=== PATIENT | male | born 1935 | race Caucasian/White ===

== ENCOUNTER 2017-11-15 17:48 | Inpatient (IN) | payer MEDICARE, OTHER ==
[~2017-11-15] VITALS: Ht 154.9 cm; Wt 109.8 kg
--- NOTE | 2017-11-15 17:58 | NUR ---
Dr. Louis here to see pt at the bedside for MSE.
[2017-11-15 18:08] LABS: BASOPHILS % (AUTO) 0.4 % (0.0-2.0); EOSINOPHILS # (AUTO) 0.5 K/uL (0.0-0.7); EOSINOPHILS % (AUTO) 4.3 % (0.0-7.0); HEMATOCRIT 30.5 % (36.7-47.1); HEMOGLOBIN 9.9 g/dL (12.5-16.3); LYMPHOCYTES # (AUTO) 3.1 K/uL (20.0-40.0); LYMPHOCYTES % (AUTO) 24.2 % (20.5-51.5); MEAN CORPUSCULAR HGB CONC 33 g/dL (32.5-36.3); MEAN CORPUSCULAR VOLUME 85.9 fL (73.0-96.2); MONOCYTES # (AUTO) 0.9 K/uL (2.0-10.0); MONOCYTES % (AUTO) 7.5 % (0.0-11.0); NEUTROPHILS # (AUTO) 8.1 K/uL (1.8-8.9); NEUTROPHILS % (AUTO) 63.6 % (38.5-71.5); PLATELET COUNT (AUTO) 270 K/uL (152-348); RED BLOOD CELL COUNT(AUTO) 3.55 MIL/uL (4.06-5.63); WHITE BLOOD COUNT (AUTO) 12.7 K/uL (3.6-10.2)
[2017-11-15 18:21] LABS: ALANINE AMINOTRANSFERASE 14 U/L (16-63); ALKALINE PHOSPHATASE 87 U/L (50-136); ASPARTATE AMINOTRANSFERASE 6 U/L (15-37); BILIRUBIN,DIRECT 0.2 mg/dL (0.0-0.2); BILIRUBIN,TOTAL 0.4 mg/dL (0.2-1.0); CARBON DIOXIDE 25 mmol/L (21-32); CHLORIDE 105 mmol/L (98-107); CREATININE 4.6 mg/dL (0.6-1.3); GLUCOSE 139 mg/dL (74-106); POTASSIUM 4.9 mmol/L (3.5-5.1)
[2017-11-15 18:24] LABS: UREA NITROGEN, BLOOD 82 mg/dL (7-18)
[2017-11-15] MEDS ORDERED: BISA10SU12 RC (18:35)
[2017-11-15] MEDS ORDERED: TAMS-3 PO (18:35)
[2017-11-15] MEDS ORDERED: ESOM40CA PO (18:35)
[2017-11-15] MEDS ORDERED: ERGO500040 PO (18:35)
[2017-11-15] MEDS ORDERED: FURO-151 PO (18:35)
[2017-11-15] MEDS ORDERED: MAGN400O6 PO (18:35)
[2017-11-15] MEDS ORDERED: METO-357 PO (18:35)
[2017-11-15] MEDS ORDERED: DOCU-141 PO (18:35)
[2017-11-15] MEDS ORDERED: CILO50TA PO (18:35)
[2017-11-15] MEDS ORDERED: HYDR-4076 PO (18:35)
[2017-11-15] MEDS ORDERED: HYDR-3026 PO (18:35)
[2017-11-15] MEDS ORDERED: CLOP75TA15 PO (18:35)
[2017-11-15] MEDS ORDERED: SIMV20TA6 PO (18:35)
[2017-11-15] MEDS ORDERED: VITA1TAB20 PO (18:35)
[2017-11-15] MEDS ORDERED: POLY17PO4 PO (18:35)
[2017-11-15] MEDS ORDERED: FERR325T6 PO (18:35)
[2017-11-15] MEDS ORDERED: BLOO-140 IN (18:35)
[2017-11-15] MEDS ORDERED: ISOS60TA4 PO (18:35)
[2017-11-15] MEDS ORDERED: LINA5TAB PO (18:35)
[2017-11-15] MEDS ORDERED: OMEG1CAP74 PO (18:35)
[2017-11-15] MEDS ORDERED: NALO25TA PO (18:35)
[2017-11-15] MEDS ORDERED: ALBU2.5V38 IH (18:35)
[2017-11-15] MEDS ORDERED: POLY15DR57 OP (18:35)
[2017-11-15] MEDS ORDERED: GABA-532 PO (18:35)
[2017-11-15] MEDS ORDERED: DULA0.75 SQ (18:35)
[2017-11-15 18:44] LABS: *BILIRUBIN,URIN NEGATIVE (NEGATIVE); *BLOOD, URINE 2+ (NEGATIVE); *CLARITY,URINE CLOUDY (CLEAR); *COLOR,URINE YELLOW (YELLOW); *KETONES,URINE NEGATIVE (NEGATIVE); *PROTEIN,URINE 2+ (NEGATIVE); *UROBILINOGEN,URINE 0.2 E.U./dl (NORMAL); LEUKOCYTE ESTERASE ,URINE 1+ (NEGATIVE); NITRITE, URINE POSITIVE (NEGATIVE); PH,URINE 5.5 (5.0-8.0); UGLUCOSE NEGATIVE (NEGATIVE)
[2017-11-15 18:59] LABS: BACTERIA,URINE MODERATE /HPF (NONE SEEN); SQUAMOUS EPITHELIAL CELL,UR FEW /HPF (NONE SEEN); WBC,URINE 20-50 /HPF (0-3)
[2017-11-15] MEDS ORDERED: CEFTRIAXONE 1 G in IV DEXTROSE 5% 50 ML IV ONE (19:15)
[2017-11-15] MEDS ORDERED: FUROSEMIDE 20 MG/2 ML VIAL IV ONE (19:15)
--- NOTE | 2017-11-15 19:20 | NUR ---
REPORT RECEIVED FROM DAY SHIFT RN
[2017-11-15] MEDS ORDERED: CEFTRIAXONE 1 G VIAL ONE (19:42)
--- NOTE | 2017-11-15 19:45 | NUR ---
PT IN BED. PT'S SON AT BEDSIDE. NO SIGNS OF ACUTE DISTRESS AT THIS TIME.
--- NOTE | 2017-11-15 20:05 | NUR ---
PT IN BED. PT'S SON AT BEDSIDE. PT BREATH SOUNDS WITH RALE AND CRACKLES. LASIX WAS ORDERED BUT NOT GIVEN DUE TO MED NOT BEING AVAILABLE IN DEPARTMENT. MD LARSON AND ELVIA FLORES MADE AWARE.
--- NOTE | 2017-11-15 21:14 | NUR ---
PT'S SON LEAVE PHONE FOR STATUS UPDATES: ART
--- NOTE | 2017-11-15 22:35 | NUR ---
REPORT GIVEN TO TELEMETRY NURSE, BRYON SHIN
--- NOTE | 2017-11-15 22:35 | NUR ---
Leroy coffey in [facility] - 11/15/17 at 2335 by KATELYNN REPORT GIVEN TO TELEMETRY NURSEBRYON
--- NOTE | 2017-11-15 22:55 | NUR ---
Pt. admitted to TELEMETRY, under care of Dr. IRIZARRY Belongs List completed
[2017-11-15] MEDS ORDERED: ERGOCALCIFEROL 50,000 UNIT CAPSULE PO SCH (23:00)
[2017-11-15] MEDS ORDERED: MAGNESIUM HYDROXIDE 30 ML LIQUID UDC PO PRN (23:00)
--- NOTE | 2017-11-15 23:05 | NUR ---
RECEIVED REPORT FROM ER NURSE, BRYON OROZCO. PT ARRIVED ON TELE FLOOR ON [facility]. L HEMIPLEGIA, MAGALLON IN PLACE FROM [facility]. TELE MONITOR PLACED ON PT, NSR ON TELE. MD AWARE OF PT'S ABNORMAL LABS. SKIN ALTERATIONS NOTED AND PHOTOS PLACED IN CHART. APPLIED HYDROGEL, Z GUARD, AND MEPILEX ON SACRUM.
[2017-11-15] MEDS ORDERED: IV NS 1000 ML 1,000 ML IV PRN (23:09)
[2017-11-15] MEDS ORDERED: ENOXAPARIN SODIUM 30 MG/0.3 ML DISP.SYRIN SQ SCH (23:15)
[2017-11-15] MEDS ORDERED: ONDANSETRON 4 MG/2 ML VIAL IV PRN (23:15)
[2017-11-15] MEDS ORDERED: DEXTROSE 50% 50 ML DISP.SYRIN IV PRN (23:30)
[2017-11-16 00:54] LABS: IRON, SERUM 27 ug/dL (50-175)
[2017-11-16 00:59] LABS: FERRITIN 585 ng/mL (26-388)
[2017-11-16 03:35] VITALS: BP 118/55
--- NOTE | 2017-11-16 05:43 | NUR ---
No changes t/o the rest of the shift. Patient remains A/O x 3. IV on the left AC patent and intact. TELE SR. Denies pain and SOB. On O2 1L NC. Crackles heard t/o lungs. Vital signs stable. Anderson draining clear yellow urine. Noted brace on the left leg for physical therapy. Noted sacral open wound, groin and butt cheeks redness. Hydrogel and Mepilex in place. Turn and repositioned Q2H. Safety and comfort measures maintained t/o shift. All meds given as ordered. All needs met.
[2017-11-16] MEDS: ACETAMINOPHEN 325 MG TABLET PO PRN ×2 (06:47→10:12)
--- NOTE | 2017-11-16 08:00 | NUR ---
RECEIVED PATIENT AWAKE ON BED. NO SOB, DENIES CHEST PAIN. SAFETY MEASURES INITIATED. PLAN OF CARE IMPLEMENTED REGARDING FALL PRECAUTION, WOUND/SKIN MANAGEMENT, PAIN MANAGEMENT AND ASPIRATION PRECAUTION.
[2017-11-16] MEDS: BLOOD SUGAR DIAGNOSTIC 1 EACH STRIP VI SCH ×4 (08:41→20:19)
[2017-11-16] MEDS: TAMSULOSIN HCL 0.4 MG CAP.SR.24H PO SCH (08:41)
[2017-11-16] MEDS: MIRALAX 17 GM POWD.PACK PO SCH (08:41)
[2017-11-16] MEDS: LINAGLIPTIN 5 MG TABLET PO SCH (08:41)
[2017-11-16] MEDS: FERROUS SULFATE 325 MG TABEC PO SCH (08:41)
[2017-11-16] MEDS: DOCUSATE SODIUM 100 MG CAPSULE PO SCH ×2 (08:42→16:41)
[2017-11-16] MEDS: INSULIN REGULAR, HUMAN 300 UNIT/3 ML VIAL SQ PRN (08:46)
[2017-11-16] MEDS ORDERED: METOPROLOL SUCCINATE XL 50 MG TAB.SR.24H PO SCH (09:00)
[2017-11-16] MEDS ORDERED: hydrALAZINE HCL 25 MG TABLET PO SCH (09:00)
[2017-11-16] MEDS ORDERED: FUROSEMIDE 40 MG TABLET PO SCH (09:00)
[2017-11-16] MEDS ORDERED: ISOSORBIDE MONONITRATE 60 MG TAB.SR.24H PO SCH (09:00)
[2017-11-16] MEDS: CLOPIDOGREL 75 MG TABLET PO SCH (09:00)
[2017-11-16] MEDS ORDERED: MAGNESIUM HYDROXIDE 30 ML LIQUID UDC PO PRN (09:19)
[2017-11-16 09:36] LABS: ALANINE AMINOTRANSFERASE 14 U/L (16-63); ALKALINE PHOSPHATASE 91 U/L (50-136); ASPARTATE AMINOTRANSFERASE 7 U/L (15-37); BILIRUBIN,TOTAL 0.4 mg/dL (0.2-1.0); CARBON DIOXIDE 24 mmol/L (21-32); CHLORIDE 105 mmol/L (98-107); CREATININE 4.7 mg/dL (0.6-1.3); GLUCOSE 148 mg/dL (74-106); MAGNESIUM 2.7 mg/dL (1.8-2.4); PHOSPHOROUS 6.5 mg/dL (2.5-4.9); POTASSIUM 4.7 mmol/L (3.5-5.1); TOTAL PROTEIN, SERUM 8.4 g/dL (6.4-8.2)
[2017-11-16 09:39] LABS: UREA NITROGEN, BLOOD 86 mg/dL (7-18)
[2017-11-16 09:56] LABS: BASOPHILS # (AUTO) 0.1 K/uL (0.0-8.0); BASOPHILS % (AUTO) 0.5 % (0.0-2.0); EOSINOPHILS # (AUTO) 0.4 K/uL (0.0-0.7); EOSINOPHILS % (AUTO) 3.2 % (0.0-7.0); HEMATOCRIT 32.6 % (36.7-47.1); HEMOGLOBIN 10.6 g/dL (12.5-16.3); LYMPHOCYTES # (AUTO) 2.5 K/uL (20.0-40.0); MEAN CORPUSCULAR HEMOGLOBIN 27.7 uug (23.8-33.4); MEAN CORPUSCULAR HGB CONC 33 g/dL (32.5-36.3); MEAN CORPUSCULAR VOLUME 85.1 fL (73.0-96.2); MONOCYTES # (AUTO) 0.7 K/uL (2.0-10.0); MONOCYTES % (AUTO) 6.3 % (0.0-11.0); NEUTROPHILS # (AUTO) 8.1 K/uL (1.8-8.9); PLATELET COUNT (AUTO) 282 K/uL (152-348); RED BLOOD CELL COUNT(AUTO) 3.83 MIL/uL (4.06-5.63); WHITE BLOOD COUNT (AUTO) 11.7 K/uL (3.6-10.2)
[2017-11-16 11:17] LABS: CHOLESTEROL 149 mg/dL (<200); HDL CHOLESTEROL 31 mg/dL (40-60); TRIGLYCERIDES 131 MG/DL (30-150)
[2017-11-16 11:39] VITALS: BP 125/56
--- NOTE | 2017-11-16 13:03 | NUR ---
WOUND CARE CONSULT: PT PRESENTS WITH VERY RED RASH TO SACRAL/BUTTOCKS, GROIN, ABD FOLD AREAS, PRESENT ON ADMISSION. ALL SKIN PROTECTION RECOMMENDATIONS DISCUSSED WITH NURSING STAFF. FIRST STEP MATTRESS ORDERED. WILL SEE PRN. DYER IN AGREEMENT WITH PLAN OF CARE. LEFT HEMIPARESIS NOTED. Addendum: 11/16/17 at 1304 by DEVYN OATES RN Amended: Links added.
[2017-11-16] MEDS ORDERED: hydrALAZINE HCL 25 MG TABLET PO PRN (14:30)
--- NOTE | 2017-11-16 14:40 | NUR ---
WOUND CARE PROVIDED TO PATIENT. LOTRISONE CREAM APPLIED ORDERED. TURNED PATIENT ON SIDE.
[2017-11-16] MEDS: CLOTRIMAZOLE/BETAMET DIPROP CREAM 15 GM TUBE TOP SCH (16:06)
[2017-11-16 16:40] VITALS: BP 136/67
[2017-11-16] MEDS: GABAPENTIN 100 MG CAPSULE PO SCH (16:41)
[2017-11-16] MEDS: PANTOPRAZOLE SODIUM 40 MG TABLET.DR PO SCH (17:01)
[2017-11-16] MEDS: SIMVASTATIN 20 MG TABLET PO SCH (18:11)
--- NOTE | 2017-11-16 19:27 | NUR ---
PATIENT REMAINED COMFORTABLY IN BED. ON TELE SINUS RHYTHM HR OF 95. NO SOB, DENIES CHEST PAIN. SAFETY MEASURES MAINTAINED AT ALL TIMES.
[2017-11-16] MEDS: CEFTRIAXONE 1 G in IV DEXTROSE 5% 50 ML IV SCH (19:59)
--- NOTE | 2017-11-16 20:00 | NUR ---
OBSERVED TO BE RESTING IN BED WITH NO S/S OF ACUTE DISTRESS NOTED AT THIS TIME. TELE SINUS RHYTHM WITH HR IN THE 80'S. SAFETY MEASURES IMPLEMENTED AT ALL TIMES. CALL LIGHT WITHIN REACH. WILL CONTINUE TO MONITOR CLOSELY.
[2017-11-16 20:17] VITALS: BP 113/51
[2017-11-16] MEDS: HEPARIN SODIUM,PORCINE 5,000 UNITS/ML VIAL SQ SCH (20:20)
[2017-11-16] MEDS ORDERED: CLOTRIMAZOLE/BETAMET DIPROP CREAM 15 GM TUBE TOP SCH (21:00)
[2017-11-16] MEDS: GUAIFENESIN/DEXTROMETHORPHAN 5 ML UDC PO PRN (21:48)
[2017-11-17 00:12] VITALS: BP 101/55
[2017-11-17 04:44] VITALS: BP 106/51
[2017-11-17 06:12] LABS: BASOPHILS # (AUTO) 0.1 K/uL (0.0-8.0); BASOPHILS % (AUTO) 0.5 % (0.0-2.0); EOSINOPHILS # (AUTO) 0.5 K/uL (0.0-0.7); HEMOGLOBIN 10.4 g/dL (12.5-16.3); LYMPHOCYTES # (AUTO) 2.9 K/uL (20.0-40.0); LYMPHOCYTES % (AUTO) 28.8 % (20.5-51.5); MEAN CORPUSCULAR HEMOGLOBIN 27.6 uug (23.8-33.4); MEAN CORPUSCULAR HGB CONC 32 g/dL (32.5-36.3); MEAN CORPUSCULAR VOLUME 85.3 fL (73.0-96.2); MONOCYTES # (AUTO) 0.9 K/uL (2.0-10.0); MONOCYTES % (AUTO) 8.8 % (0.0-11.0); NEUTROPHILS # (AUTO) 5.8 K/uL (1.8-8.9); NEUTROPHILS % (AUTO) 56.9 % (38.5-71.5); PLATELET COUNT (AUTO) 253 K/uL (152-348); RED BLOOD CELL COUNT(AUTO) 3.75 MIL/uL (4.06-5.63); WHITE BLOOD COUNT (AUTO) 10.2 K/uL (3.6-10.2)
[2017-11-17 06:32] LABS: ALANINE AMINOTRANSFERASE 14 U/L (16-63); ALKALINE PHOSPHATASE 85 U/L (50-136); ASPARTATE AMINOTRANSFERASE 10 U/L (15-37); BILIRUBIN,TOTAL 0.4 mg/dL (0.2-1.0); CARBON DIOXIDE 23 mmol/L (21-32); CHLORIDE 106 mmol/L (98-107); CREATININE 4.4 mg/dL (0.6-1.3); GLUCOSE 114 mg/dL (74-106); MAGNESIUM 2.5 mg/dL (1.8-2.4); PHOSPHOROUS 5.4 mg/dL (2.5-4.9); POTASSIUM 5.1 mmol/L (3.5-5.1); TOTAL PROTEIN, SERUM 7.9 g/dL (6.4-8.2)
[2017-11-17 06:37] LABS: THYROID STIMULATING HORMONE 0.562 mIU/mL (0.358-3.740)
[2017-11-17] MEDS: PANTOPRAZOLE SODIUM 40 MG TABLET.DR PO SCH (06:38)
[2017-11-17] MEDS: BLOOD SUGAR DIAGNOSTIC 1 EACH STRIP VI SCH ×4 (06:41→21:22)
[2017-11-17 06:44] LABS: UREA NITROGEN, BLOOD 83 mg/dL (7-18)
--- NOTE | 2017-11-17 06:56 | NUR ---
PT PLACED ON AIR MATTRESS. FREQUENT REPOSITIONING PROVIDED. NO S/S OF DISTRESS NOTED AT THIS TIME. TELE NOTED TO BE SINUS RHYTHM. SAFETY MEASURES IMPLEMENTED AT ALL TIMES. WILL ENDORSE ACCORDINGLY.
[2017-11-17] MEDS: FERROUS SULFATE 325 MG TABEC PO SCH (08:01)
[2017-11-17] MEDS: DOCUSATE SODIUM 100 MG CAPSULE PO SCH ×2 (08:01→17:19)
[2017-11-17] MEDS: LINAGLIPTIN 5 MG TABLET PO SCH (08:02)
[2017-11-17] MEDS: MIRALAX 17 GM POWD.PACK PO SCH (08:02)
[2017-11-17] MEDS: TAMSULOSIN HCL 0.4 MG CAP.SR.24H PO SCH (08:02)
[2017-11-17] MEDS: HEPARIN SODIUM,PORCINE 5,000 UNITS/ML VIAL SQ SCH ×2 (08:06→20:12)
[2017-11-17] MEDS: CLOTRIMAZOLE/BETAMET DIPROP CREAM 15 GM TUBE TOP SCH ×2 (08:07→21:00)
[2017-11-17] MEDS: CLOPIDOGREL 75 MG TABLET PO SCH (08:15)
[2017-11-17 10:15] VITALS: BP 123/52
[2017-11-17] MEDS: INSULIN REGULAR, HUMAN 300 UNIT/3 ML VIAL SQ PRN ×3 (11:54→21:24)
[2017-11-17 11:58] VITALS: BP 123/48
[2017-11-17 15:30] VITALS: BP 107/48
[2017-11-17] MEDS: GUAIFENESIN/DEXTROMETHORPHAN 5 ML UDC PO PRN (16:21)
[2017-11-17] MEDS: GABAPENTIN 100 MG CAPSULE PO SCH (17:19)
[2017-11-17] MEDS: SIMVASTATIN 20 MG TABLET PO SCH (18:03)
[2017-11-17] MEDS: CEFTRIAXONE 1 G in IV DEXTROSE 5% 50 ML IV SCH (18:03)
--- NOTE | 2017-11-17 18:43 | NUR ---
Patient is alert, in no distress. Anderson cath intact/patent, draining yellow urine. Frequent repositioning done. IV antibiotic administered as ordered, no adverse reaction noted. Patient able to feed himself using right arm/extremity. Wound treatment/skin care provided. Safety measures in place.
--- NOTE | 2017-11-17 19:20 | NUR ---
RECEIVED PT LYING IN BED. AAOX3. DENIES ANY PAIN OR SOB. NOTED WITH OCCASIONAL NON-PRODUCTIVE COUGH. ON O2 AT 2LPM VIA NC IN PLACE. IN NO ACUTE DISTRESS. IV SITE ON RIGHT AC INTACT AND PATENT. SAFETY MEASURE AND ISOLATION PRECAUTION INITIATED. CALL GEORGE WITHIN REACH.
--- NOTE | 2017-11-17 19:45 | NUR ---
RECEIVED ORDER FROM DOCTOR Cesar IRIZARRY TO START PATIENT ON BACTROBAN OINTMENT FOR + MRSA NARES. ORDER NOTED AND CARRIED OUT.
[2017-11-17] MEDS ORDERED: MUPIROCIN 2% OINT 22 GM TUBE ONE (20:51)
[2017-11-17] MEDS ORDERED: MUPIROCIN 2% OINT 22 GM TUBE NS SCH (21:00)
--- NOTE | 2017-11-17 21:00 | NUR ---
Clotrimazole cream not given, medication not available.
[2017-11-17 21:35] VITALS: BP 129/63
[2017-11-17] MEDS: TRAZODONE 100 MG TABLET PO PRN (23:25)
[2017-11-18 00:02] VITALS: BP 120/61
[2017-11-18] MEDS: GUAIFENESIN/DEXTROMETHORPHAN 5 ML UDC PO PRN ×3 (03:19→22:13)
[2017-11-18] MEDS: ACETAMINOPHEN 325 MG TABLET PO PRN (06:00)
[2017-11-18] MEDS: PANTOPRAZOLE SODIUM 40 MG TABLET.DR PO SCH (06:00)
[2017-11-18 06:04] VITALS: BP 143/66
[2017-11-18] MEDS: ALBUTEROL SULFATE 2.5 MG/3 ML NEBU IH PRN (06:08)
[2017-11-18] MEDS: BLOOD SUGAR DIAGNOSTIC 1 EACH STRIP VI SCH ×4 (06:39→20:42)
--- NOTE | 2017-11-18 06:44 | NUR ---
AAOX3. IN NO ACUTE DISTRESS. STILL WITH OCCASIONAL NON-PRODUCTIVE COUGH. ON O2 AT 2LPM VIA NC IN PLACE. O2 SAT AT 100%. IV SITE ON RIGHT AC INTACT AND PATENT. SAFETY MEASURE AND ISOLATION PRECAUTION MAINTAINED. CALL GEORGE WITHIN REACH. Addendum: 11/18/17 at 0650 by GANESH BHANDARI RN SINUS TACHY ON TELE AT 108/MIN.
[2017-11-18] MEDS: INSULIN REGULAR, HUMAN 300 UNIT/3 ML VIAL SQ PRN ×4 (08:05→20:44)
[2017-11-18 08:06] VITALS: BP 106/52
[2017-11-18] MEDS: MUPIROCIN 2% OINT 22 GM TUBE NS SCH ×2 (08:12→20:37)
[2017-11-18] MEDS: LINAGLIPTIN 5 MG TABLET PO SCH (08:13)
[2017-11-18] MEDS: FERROUS SULFATE 325 MG TABEC PO SCH (08:13)
[2017-11-18] MEDS: CLOPIDOGREL 75 MG TABLET PO SCH (08:13)
[2017-11-18] MEDS: DOCUSATE SODIUM 100 MG CAPSULE PO SCH ×2 (08:13→17:10)
[2017-11-18] MEDS: TAMSULOSIN HCL 0.4 MG CAP.SR.24H PO SCH ×2 (08:13→20:37)
[2017-11-18] MEDS: MIRALAX 17 GM POWD.PACK PO SCH (08:15)
[2017-11-18] MEDS: HEPARIN SODIUM,PORCINE 5,000 UNITS/ML VIAL SQ SCH ×2 (08:15→20:35)
[2017-11-18] MEDS: CLOTRIMAZOLE/BETAMET DIPROP CREAM 15 GM TUBE TOP SCH ×2 (08:31→20:35)
[2017-11-18] MEDS: Z GUARD REMEDY PASTE 57 GM TUBE TOP PRN (08:34)
[2017-11-18 11:31] VITALS: BP 115/61
[2017-11-18] MEDS ORDERED: SULFAMETH/TRIMETH 800/160 MG TABLET PO SCH (14:00)
[2017-11-18 15:32] VITALS: BP 118/39
--- NOTE | 2017-11-18 15:35 | NUR ---
Patient noted to have productive cough, prn med administered as ordered.
[2017-11-18] MEDS: SIMVASTATIN 20 MG TABLET PO SCH (17:10)
[2017-11-18] MEDS: GABAPENTIN 100 MG CAPSULE PO SCH (17:10)
--- NOTE | 2017-11-18 18:00 | NUR ---
Patient is alert, in no distress, son at bedside. Accuchecks done as ordered, no s/s of hypo/hyperglycemia noted. Frequent positioning done, patient kept clean/dry. Anderson cath patent/intact, draining yellow urine. All needs met. Safety measures in place.
[2017-11-18 19:00] VITALS: BP 110/49
--- NOTE | 2017-11-18 19:20 | NUR ---
RECEIVED PT LYING IN BED. AAOX3. IN NO ACUTE DISTRESS. NO COUGHING NOTED AT THIS TIME. ON O2 AT 2LPM VIA NC IN PLACE. IN NO ACUTE DISTRESS. IV SITE ON RIGHT AC INTACT AND PATENT. SAFETY MEASURE AND ISOLATION PRECAUTION INITIATED. CALL GEORGE WITHIN REACH.
[2017-11-19] VITALS: BP 96/44
[2017-11-19 03:07] LABS: VIT D, 25-HYDROXY 20.3 ng/mL (30.0-100.0)
[2017-11-19 04:00] VITALS: BP 97/63
--- NOTE | 2017-11-19 05:44 | NUR ---
AAOX3. IN NO ACUTE DISTRESS. WITH SPORADIC NON-PRODUCTIVE COUGH. ON O2 AT 2LPM VIA NC IN PLACE. O2 SAT AT 95%. IV SITE ON RIGHT AC INTACT AND PATENT. F/C INTACT AND DRAINING VIA GRAVITY. SAFETY MEASURE AND ISOLATION PRECAUTION MAINTAINED. CALL GEORGE WITHIN REACH.
[2017-11-19] MEDS: BLOOD SUGAR DIAGNOSTIC 1 EACH STRIP VI SCH ×4 (06:30→22:15)
[2017-11-19] MEDS: PANTOPRAZOLE SODIUM 40 MG TABLET.DR PO SCH (06:30)
[2017-11-19 06:36] LABS: BASOPHILS % (AUTO) 0.2 % (0.0-2.0); EOSINOPHILS # (AUTO) 0.2 K/uL (0.0-0.7); EOSINOPHILS % (AUTO) 1.1 % (0.0-7.0); HEMOGLOBIN 9.3 g/dL (12.5-16.3); LYMPHOCYTES # (AUTO) 4.1 K/uL (20.0-40.0); LYMPHOCYTES % (AUTO) 22.9 % (20.5-51.5); MEAN CORPUSCULAR HEMOGLOBIN 27.4 uug (23.8-33.4); MEAN CORPUSCULAR HGB CONC 32 g/dL (32.5-36.3); MEAN CORPUSCULAR VOLUME 85.7 fL (73.0-96.2); MONOCYTES # (AUTO) 1.8 K/uL (2.0-10.0); MONOCYTES % (AUTO) 10.2 % (0.0-11.0); NEUTROPHILS # (AUTO) 11.8 K/uL (1.8-8.9); NEUTROPHILS % (AUTO) 65.6 % (38.5-71.5); PLATELET COUNT (AUTO) 230 K/uL (152-348); RED BLOOD CELL COUNT(AUTO) 3.38 MIL/uL (4.06-5.63)
[2017-11-19 07:08] LABS: ALANINE AMINOTRANSFERASE 24 U/L (16-63); ALKALINE PHOSPHATASE 130 U/L (50-136); ASPARTATE AMINOTRANSFERASE 20 U/L (15-37); BILIRUBIN,TOTAL 0.3 mg/dL (0.2-1.0); CARBON DIOXIDE 24 mmol/L (21-32); CHLORIDE 100 mmol/L (98-107); CREATININE 4.9 mg/dL (0.6-1.3); GLUCOSE 154 mg/dL (74-106); MAGNESIUM 2.5 mg/dL (1.8-2.4); PHOSPHOROUS 4.6 mg/dL (2.5-4.9); POTASSIUM 5.2 mmol/L (3.5-5.1)
[2017-11-19 07:12] LABS: UREA NITROGEN, BLOOD 95 mg/dL (7-18)
--- NOTE | 2017-11-19 07:30 | NUR ---
RECEIVED PATIENT ON BED, ASLEEP, A AND O X 3 WITH BOUTS OF FORGETFULNESS ON O2 @ 2LPM VIA NC, NO SOB NOTED. BLOOD GLUCOSE 138, WILL COVER W/ 2 UNITS INSULIN. ON CONTACT ISOLATION MRSA NARES, STAPH AUREUS NARES AND URINE. FC INTACT AND PATENT, DRAINING CLEAR YELLOW URINE. IV ACCESS ON THE RIGHT AC #22 HEPLOCK, INTACT AND PATENT. COMFORT MEASURES PROVIDED. CALL LIGHT WITHIN REACH WILL CONTINUE TO MONITOR CLOSELY.
[2017-11-19] MEDS: INSULIN REGULAR, HUMAN 300 UNIT/3 ML VIAL SQ PRN ×4 (08:16→22:17)
[2017-11-19] MEDS: CLOPIDOGREL 75 MG TABLET PO SCH (08:18)
[2017-11-19] MEDS: LINAGLIPTIN 5 MG TABLET PO SCH (08:18)
[2017-11-19] MEDS: HEPARIN SODIUM,PORCINE 5,000 UNITS/ML VIAL SQ SCH ×2 (08:19→22:16)
[2017-11-19] MEDS: FERROUS SULFATE 325 MG TABEC PO SCH (08:22)
[2017-11-19] MEDS: DOCUSATE SODIUM 100 MG CAPSULE PO SCH ×2 (08:22→17:15)
[2017-11-19] MEDS: CLOTRIMAZOLE/BETAMET DIPROP CREAM 15 GM TUBE TOP SCH ×2 (08:23→22:15)
[2017-11-19] MEDS: MUPIROCIN 2% OINT 22 GM TUBE NS SCH ×2 (08:23→22:15)
[2017-11-19] MEDS: MIRALAX 17 GM POWD.PACK PO SCH (08:23)
[2017-11-19] MEDS ORDERED: SULFAMETH/TRIMETH 800/160 MG TABLET PO SCH (09:00)
[2017-11-19 09:02] LABS: BAND % (MANUAL) 2 % (0-10); EOSINOPHILS % (MANUAL) 2 % (0-8); LYMPHOCYTES % (MANUAL) 23 % (20-40); MONOCYTES % (MANUAL) 9 % (2-10); MYELOCYTES % 1 % (0-0); NEUTROPHILS % (MANUAL) 63 % (42-75)
--- NOTE | 2017-11-19 09:50 | NUR ---
TAKEN DOWN TO RADIOLOGY VIA BED FOR CT SCAN OF PELVIS AND ABD, ACCOMPANIED BY INCOME TAX AUDITOR.
[2017-11-19] MEDS: BISACODYL 10 MG SUPP.RECT RC PRN (10:28)
--- NOTE | 2017-11-19 10:30 | NUR ---
PATIENT BACK ON FLOOR, COMPLETE LINEN CHANGE AND REPOSITION DONE WILL CONTINUE TO MONITOR CLOSELY.
--- NOTE | 2017-11-19 10:43 | NUR ---
PATIENT NO BM APPROX. 3 DAYS. DULCOLAX 10MG SUPP VIA RC GIVEN. WELL TOLERATED. WILL CONTINUE TO MONITOR.
[2017-11-19 11:43] VITALS: BP 92/48
[2017-11-19] MEDS: IV 1/2NS 1000 ML 1,000 ML IV PRN (13:20)
[2017-11-19] MEDS: ACETAMINOPHEN 325 MG TABLET PO PRN (14:59)
--- NOTE | 2017-11-19 15:05 | NUR ---
IV ON RIGHT AC LEAKING AND TENDER WHEN FLUSHED. REINSERTED IV ACCESS ON THE RIGHT WRIST #22, USING ASEPTIC TECHNIQUE, WITH GOOD VENOUS RETURN NOTED. 0.45% NS @ 100 CC/HR STARTED AND INFUSING WELL. WILL CONTINUE TO MONITOR NORRIS.
[2017-11-19] MEDS: OXACILLIN SODIUM IV SCH ×3 (15:52→21:09)
[2017-11-19] MEDS: NORMAL SALINE IV SCH ×3 (15:52→21:09)
[2017-11-19 16:07] VITALS: BP 97/54
[2017-11-19] MEDS: GABAPENTIN 100 MG CAPSULE PO SCH (17:15)
[2017-11-19 18:13] LABS: *BILIRUBIN,URIN NEGATIVE (NEGATIVE); *BLOOD, URINE 3+ (NEGATIVE); *CLARITY,URINE CLOUDY (CLEAR); *COLOR,URINE YELLOW (YELLOW); *KETONES,URINE NEGATIVE (NEGATIVE); *PROTEIN,URINE 3+ (NEGATIVE); *UROBILINOGEN,URINE 0.2 E.U./dl (NORMAL); LEUKOCYTE ESTERASE ,URINE 2+ (NEGATIVE); NITRITE, URINE NEGATIVE (NEGATIVE); PH,URINE 5.5 (5.0-8.0); UGLUCOSE NEGATIVE (NEGATIVE)
--- NOTE | 2017-11-19 18:22 | NUR ---
PATIENT ON BED NO ACUTE DISTRESS NOTED. ON O2 2LPM VIA NC. IVF INFUSING WELL. FC INTACT AND PATENT DRAINING CLEAR YELLOW URINE. STILL NO BM TODAY, DULCOLAX SUPP GIVEN EARLIER TODAY. CHARGE NURSE AND MD AWARE. STILL ON CONTACT PREC FOR MRSA IN NARES/STAPH AUREUS IN URINE. UA AND URINE CULTURE RESULTS STILL PENDING. VS STABLE. ALL NEEDS ATTENDED AND ANTICIPATED.
[2017-11-19 18:26] LABS: RBC,URINE 80-100 /HPF (0-3); WBC,URINE 20-50 /HPF (0-3)
[2017-11-19 18:28] LABS: MUCUS,URINE MODERATE /LPF (0-FEW); URINE AMORPHOUS URATE MODERATE /HPF; YEAST,URINE MODERATE /HPF (NONE SEEN)
[2017-11-19 19:30] VITALS: BP 86/40
[2017-11-19] MEDS ORDERED: MICAFUNGIN SODIUM 50 MG in IV NORMAL SALINE 100 ML IV SCH (21:30)
[2017-11-19] MEDS: SIMVASTATIN 10 MG TABLET PO SCH (22:15)
[2017-11-19] MEDS: TAMSULOSIN HCL 0.4 MG CAP.SR.24H PO SCH (22:15)
[2017-11-20] MEDS: IV 1/2NS 1000 ML 1,000 ML IV PRN ×2 (01:20→14:16)
[2017-11-20] MEDS: NORMAL SALINE IV SCH ×4 (03:22→22:08)
[2017-11-20] MEDS: OXACILLIN SODIUM IV SCH ×4 (03:22→22:08)
[2017-11-20 04:31] VITALS: BP 99/46
[2017-11-20 04:53] VITALS: BP 99/46
[2017-11-20 06:31] LABS: BASOPHILS # (AUTO) 0.1 K/uL (0.0-8.0); BASOPHILS % (AUTO) 0.4 % (0.0-2.0); EOSINOPHILS # (AUTO) 0.6 K/uL (0.0-0.7); EOSINOPHILS % (AUTO) 4.5 % (0.0-7.0); HEMATOCRIT 27.2 % (36.7-47.1); HEMOGLOBIN 8.7 g/dL (12.5-16.3); LYMPHOCYTES # (AUTO) 2.7 K/uL (20.0-40.0); LYMPHOCYTES % (AUTO) 19.4 % (20.5-51.5); MEAN CORPUSCULAR HEMOGLOBIN 27.7 uug (23.8-33.4); MEAN CORPUSCULAR HGB CONC 32 g/dL (32.5-36.3); MONOCYTES # (AUTO) 1.3 K/uL (2.0-10.0); MONOCYTES % (AUTO) 8.8 % (0.0-11.0); NEUTROPHILS # (AUTO) 9.5 K/uL (1.8-8.9); NEUTROPHILS % (AUTO) 66.9 % (38.5-71.5); PLATELET COUNT (AUTO) 231 K/uL (152-348); RED BLOOD CELL COUNT(AUTO) 3.16 MIL/uL (4.06-5.63); WHITE BLOOD COUNT (AUTO) 14.2 K/uL (3.6-10.2)
[2017-11-20 07:01] LABS: ALANINE AMINOTRANSFERASE 31 U/L (16-63); ALKALINE PHOSPHATASE 166 U/L (50-136); ASPARTATE AMINOTRANSFERASE 25 U/L (15-37); BILIRUBIN,TOTAL 0.2 mg/dL (0.2-1.0); CARBON DIOXIDE 21 mmol/L (21-32); CHLORIDE 100 mmol/L (98-107); CREATININE 4.9 mg/dL (0.6-1.3); GLUCOSE 123 mg/dL (74-106); MAGNESIUM 2.3 mg/dL (1.8-2.4); PHOSPHOROUS 5.8 mg/dL (2.5-4.9); POTASSIUM 4.9 mmol/L (3.5-5.1)
[2017-11-20 07:02] LABS: UREA NITROGEN, BLOOD 107 mg/dL (7-18)
[2017-11-20] MEDS: PANTOPRAZOLE SODIUM 40 MG TABLET.DR PO SCH (07:07)
[2017-11-20] MEDS: BLOOD SUGAR DIAGNOSTIC 1 EACH STRIP VI SCH ×4 (07:08→20:45)
--- NOTE | 2017-11-20 07:46 | NUR ---
Received patient in bed, awake, alert, verbally responsive. no signs of acute respiratory distress, no signs of hypo or hyperglycemia noted. Resident on IVtherapy, anders cath intact and patent draining clear yellow urine. Resident on isolation precautions for MRSA nares and Staph aureus in uriine, all needs attended.
[2017-11-20 08:00] VITALS: BP 124/57
[2017-11-20] MEDS ORDERED: MICAFUNGIN SODIUM 50 MG in IV NORMAL SALINE 100 ML IV SCH (09:00)
[2017-11-20] MEDS: HEPARIN SODIUM,PORCINE 5,000 UNITS/ML VIAL SQ SCH ×2 (09:03→20:45)
[2017-11-20] MEDS: FERROUS SULFATE 325 MG TABEC PO SCH (09:04)
[2017-11-20] MEDS: CLOPIDOGREL 75 MG TABLET PO SCH (09:04)
[2017-11-20] MEDS: MUPIROCIN 2% OINT 22 GM TUBE NS SCH ×2 (09:04→20:40)
[2017-11-20] MEDS: DOCUSATE SODIUM 100 MG CAPSULE PO SCH ×2 (09:04→16:50)
[2017-11-20] MEDS: MIRALAX 17 GM POWD.PACK PO SCH (09:04)
[2017-11-20] MEDS: LINAGLIPTIN 5 MG TABLET PO SCH (09:04)
[2017-11-20 10:19] LABS: *CREATININE,URINE 87.1 mg/dL (30-125); *URINE TOTAL PROTEIN RANDOM 170.7 mg/dL (<150/24HR)
[2017-11-20] MEDS ORDERED: ERGOCALCIFEROL 50,000 UNIT CAPSULE PO SCH (11:57)
[2017-11-20] MEDS: GUAIFENESIN/DEXTROMETHORPHAN 5 ML UDC PO PRN (12:02)
[2017-11-20 12:03] VITALS: BP 130/62
[2017-11-20] MEDS: INSULIN REGULAR, HUMAN 300 UNIT/3 ML VIAL SQ PRN ×3 (12:29→20:45)
[2017-11-20] MEDS: CLOTRIMAZOLE/BETAMET DIPROP CREAM 15 GM TUBE TOP SCH ×2 (12:33→20:38)
[2017-11-20 16:03] VITALS: BP 127/62
[2017-11-20] MEDS: BISACODYL 10 MG SUPP.RECT RC PRN (16:29)
[2017-11-20] MEDS: GABAPENTIN 100 MG CAPSULE PO SCH (16:50)
[2017-11-20] MEDS ORDERED: FLEET ENEMA 133 ML BOTTLE RC ONE (19:15)
--- NOTE | 2017-11-20 20:00 | NUR ---
Received pt alert in bed with family at bedside. Pt observed to have had a bowel movement and is refusing fleet enema at this time. Stool sample sent to lab. No s/s of acute distress at this time. Anderson catheter in place and observed to be draining. Family and patient aware of plan of care. Bed in low, locked position with bed alarm on. Call light within reach. Will continue to monitor closely.
[2017-11-20] MEDS: TAMSULOSIN HCL 0.4 MG CAP.SR.24H PO SCH (20:38)
[2017-11-20] MEDS: SIMVASTATIN 10 MG TABLET PO SCH (20:40)
[2017-11-20 20:59] VITALS: BP 150/68
[2017-11-20] MEDS: TRAZODONE 100 MG TABLET PO PRN (22:08)
[2017-11-21] MEDS: ALBUTEROL SULFATE 2.5 MG/3 ML NEBU IH PRN (02:00)
[2017-11-21 04:00] VITALS: BP 95/48
[2017-11-21] MEDS: NORMAL SALINE IV SCH ×4 (04:20→21:01)
[2017-11-21] MEDS: OXACILLIN SODIUM IV SCH ×4 (04:20→21:01)
[2017-11-21 06:44] LABS: BASOPHILS % (AUTO) 0.3 % (0.0-2.0); EOSINOPHILS # (AUTO) 0.3 K/uL (0.0-0.7); EOSINOPHILS % (AUTO) 2.7 % (0.0-7.0); HEMATOCRIT 26.6 % (36.7-47.1); HEMOGLOBIN 8.6 g/dL (12.5-16.3); LYMPHOCYTES # (AUTO) 1.8 K/uL (20.0-40.0); LYMPHOCYTES % (AUTO) 15.7 % (20.5-51.5); MEAN CORPUSCULAR HEMOGLOBIN 27.6 uug (23.8-33.4); MEAN CORPUSCULAR HGB CONC 32 g/dL (32.5-36.3); MEAN CORPUSCULAR VOLUME 85.8 fL (73.0-96.2); MONOCYTES # (AUTO) 0.9 K/uL (2.0-10.0); MONOCYTES % (AUTO) 7.8 % (0.0-11.0); NEUTROPHILS # (AUTO) 8.3 K/uL (1.8-8.9); NEUTROPHILS % (AUTO) 73.5 % (38.5-71.5); PLATELET COUNT (AUTO) 250 K/uL (152-348); WHITE BLOOD COUNT (AUTO) 11.3 K/uL (3.6-10.2)
[2017-11-21] MEDS: PANTOPRAZOLE SODIUM 40 MG TABLET.DR PO SCH (06:47)
[2017-11-21] MEDS: BLOOD SUGAR DIAGNOSTIC 1 EACH STRIP VI SCH ×4 (06:47→20:51)
--- NOTE | 2017-11-21 06:58 | NUR ---
All needs met. Frequent repositioning. safe environment at all times. no s/s of acute distress at this time
[2017-11-21 07:04] LABS: ALANINE AMINOTRANSFERASE 31 U/L (16-63); ALKALINE PHOSPHATASE 191 U/L (50-136); ASPARTATE AMINOTRANSFERASE 21 U/L (15-37); BILIRUBIN,TOTAL 0.2 mg/dL (0.2-1.0); CARBON DIOXIDE 22 mmol/L (21-32); CHLORIDE 103 mmol/L (98-107); CREATININE 4.3 mg/dL (0.6-1.3); GLUCOSE 144 mg/dL (74-106); MAGNESIUM 2.5 mg/dL (1.8-2.4); PHOSPHOROUS 4.9 mg/dL (2.5-4.9); POTASSIUM 4.8 mmol/L (3.5-5.1)
[2017-11-21 07:07] LABS: UREA NITROGEN, BLOOD 107 mg/dL (7-18)
--- NOTE | 2017-11-21 08:00 | NUR ---
RECEIVED PATIENT IN BED AWAKE ALERT AND AWARE BUT FORGETFUL ABLE TO VERBALISE SIMPLE NEEDS BUT REQUIRES MAX ASSIST FOR ALL ADL.REMAIN ON CONTACT ISOLATION AND PRECAUTION FOR MRSA NARES AND URINE WITH MAGALLON CATH TO GRAVITY DRAINAGE OF YELLOW URINE AT THIS TIME.MADE COMFORTABLE WITH NO DISTRESS.
[2017-11-21] MEDS: INSULIN REGULAR, HUMAN 300 UNIT/3 ML VIAL SQ PRN ×2 (08:07→20:54)
[2017-11-21] MEDS: MICAFUNGIN SODIUM 100 MG in IV NORMAL SALINE 100 ML IV SCH (08:43)
[2017-11-21] MEDS: CLOTRIMAZOLE/BETAMET DIPROP CREAM 15 GM TUBE TOP SCH ×2 (08:43→20:48)
[2017-11-21] MEDS: FERROUS SULFATE 325 MG TABEC PO SCH (08:43)
[2017-11-21] MEDS: DOCUSATE SODIUM 100 MG CAPSULE PO SCH ×2 (08:43→16:14)
[2017-11-21] MEDS: LINAGLIPTIN 5 MG TABLET PO SCH (08:43)
[2017-11-21] MEDS: Z GUARD REMEDY PASTE 57 GM TUBE TOP PRN (08:44)
[2017-11-21] MEDS: MUPIROCIN 2% OINT 22 GM TUBE NS SCH ×2 (08:46→20:48)
[2017-11-21] MEDS: CLOPIDOGREL 75 MG TABLET PO SCH (09:12)
[2017-11-21] MEDS: HEPARIN SODIUM,PORCINE 5,000 UNITS/ML VIAL SQ SCH ×2 (09:12→20:52)
[2017-11-21] MEDS: MIRALAX 17 GM POWD.PACK PO SCH (09:12)
--- NOTE | 2017-11-21 11:22 | NUR ---
DR REAL HERE TO SEE PATIENT AWARE OF BUN 107,CR 4.3 WITH NEW ORDERS AND NOTED PATIENT STARTED ON IVF ORDERED.
[2017-11-21 11:32] VITALS: BP 117/59
[2017-11-21] MEDS: IV 1/2NS 1000 ML 1,000 ML IV PRN (11:53)
[2017-11-21 16:03] VITALS: BP 155/73
--- NOTE | 2017-11-21 16:09 | NUR ---
PATIENT C/O COUGHING MEDICATED WITH ROBITUSSIN ORDERED AND WILL OBSERVE.
[2017-11-21] MEDS: GUAIFENESIN/DEXTROMETHORPHAN 5 ML UDC PO PRN (16:10)
[2017-11-21] MEDS: GABAPENTIN 100 MG CAPSULE PO SCH (16:14)
--- NOTE | 2017-11-21 18:00 | NUR ---
RESTING REMAIN ON IVF AND ATB ORDERED WITH NO ADVERSE OR ALLERGIC REACTIONS AT THIS TIME.REMAIN ON CONTACT ISOLATION MADE COMFORTABLE WILL CONTINUE TO OBSERVE.
[2017-11-21 19:00] VITALS: BP 131/59
--- NOTE | 2017-11-21 19:20 | NUR ---
IV SITE RIGHT HAND IS LEAKING REINSERTED TO HIS LET HAND WITH ONE ATTEMPT WITH GAUGE 20 TOLERATED WELL.
--- NOTE | 2017-11-21 20:30 | NUR ---
Observed to be AAO x 3. No s/s of acute distress at this time. Pt cleaned and made comfortable. Safe environment provided at all times. Will continue to closely monitor.
[2017-11-21] MEDS: TAMSULOSIN HCL 0.4 MG CAP.SR.24H PO SCH (20:45)
[2017-11-21] MEDS: SIMVASTATIN 10 MG TABLET PO SCH (20:45)
[2017-11-21] MEDS: TRAZODONE 100 MG TABLET PO PRN (22:32)
[2017-11-22 04:00] VITALS: BP 129/54
[2017-11-22] MEDS: OXACILLIN SODIUM IV SCH ×2 (04:16→10:11)
[2017-11-22] MEDS: NORMAL SALINE IV SCH ×2 (04:16→10:11)
--- NOTE | 2017-11-22 04:20 | NUR ---
Pt resting comfortably in bed. Introduced self to patient. Contact precautions observed. No adverse reactions to antibiotic oxacillin. Bed in low position. Bed alarm on. Call light in reach. Will continue to monitor.
[2017-11-22] MEDS: PANTOPRAZOLE SODIUM 40 MG TABLET.DR PO SCH (06:23)
[2017-11-22] MEDS: GUAIFENESIN/DEXTROMETHORPHAN 5 ML UDC PO PRN (06:34)
[2017-11-22] MEDS: BLOOD SUGAR DIAGNOSTIC 1 EACH STRIP VI SCH ×2 (06:35→11:54)
[2017-11-22 06:44] LABS: BASOPHILS # (AUTO) 0.1 K/uL (0.0-8.0); BASOPHILS % (AUTO) 0.7 % (0.0-2.0); EOSINOPHILS # (AUTO) 0.6 K/uL (0.0-0.7); EOSINOPHILS % (AUTO) 6.4 % (0.0-7.0); HEMATOCRIT 28.6 % (36.7-47.1); HEMOGLOBIN 9.3 g/dL (12.5-16.3); LYMPHOCYTES # (AUTO) 2.3 K/uL (20.0-40.0); LYMPHOCYTES % (AUTO) 23.9 % (20.5-51.5); MEAN CORPUSCULAR HEMOGLOBIN 27.9 uug (23.8-33.4); MEAN CORPUSCULAR HGB CONC 33 g/dL (32.5-36.3); MEAN CORPUSCULAR VOLUME 85.4 fL (73.0-96.2); MONOCYTES # (AUTO) 0.9 K/uL (2.0-10.0); MONOCYTES % (AUTO) 9.7 % (0.0-11.0); NEUTROPHILS # (AUTO) 5.6 K/uL (1.8-8.9); NEUTROPHILS % (AUTO) 59.3 % (38.5-71.5); PLATELET COUNT (AUTO) 275 K/uL (152-348); RED BLOOD CELL COUNT(AUTO) 3.35 MIL/uL (4.06-5.63); WHITE BLOOD COUNT (AUTO) 9.5 K/uL (3.6-10.2)
[2017-11-22 07:00] LABS: ALANINE AMINOTRANSFERASE 27 U/L (16-63); ALKALINE PHOSPHATASE 165 U/L (50-136); ASPARTATE AMINOTRANSFERASE 19 U/L (15-37); BILIRUBIN,TOTAL 0.3 mg/dL (0.2-1.0); CARBON DIOXIDE 23 mmol/L (21-32); CHLORIDE 106 mmol/L (98-107); CREATININE 3.8 mg/dL (0.6-1.3); GLUCOSE 112 mg/dL (74-106); MAGNESIUM 2.5 mg/dL (1.8-2.4); PHOSPHOROUS 4.6 mg/dL (2.5-4.9); TOTAL PROTEIN, SERUM 7.2 g/dL (6.4-8.2)
[2017-11-22 07:02] LABS: UREA NITROGEN, BLOOD 99 mg/dL (7-18)
[2017-11-22] MEDS: CLOTRIMAZOLE/BETAMET DIPROP CREAM 15 GM TUBE TOP SCH (08:33)
[2017-11-22] MEDS: LINAGLIPTIN 5 MG TABLET PO SCH (08:33)
[2017-11-22] MEDS: CLOPIDOGREL 75 MG TABLET PO SCH (08:34)
[2017-11-22] MEDS: MUPIROCIN 2% OINT 22 GM TUBE NS SCH (08:35)
[2017-11-22] MEDS: MIRALAX 17 GM POWD.PACK PO SCH (08:35)
[2017-11-22] MEDS: HEPARIN SODIUM,PORCINE 5,000 UNITS/ML VIAL SQ SCH (08:39)
[2017-11-22] MEDS: FERROUS SULFATE 325 MG TABEC PO SCH ×2 (08:49→09:14)
[2017-11-22] MEDS: DOCUSATE SODIUM 100 MG CAPSULE PO SCH ×2 (08:49→09:14)
[2017-11-22] MEDS: MICAFUNGIN SODIUM 100 MG in IV NORMAL SALINE 100 ML IV SCH (09:01)
[2017-11-22] MEDS: IV 1/2NS 1000 ML 1,000 ML IV PRN (09:07)
[2017-11-22 11:31] VITALS: BP 108/60
[2017-11-22] MEDS ORDERED: TRAZ-182 PO (15:42)
[2017-11-22] MEDS ORDERED: SIMV10TA6 PO (15:42)
[2017-11-22] MEDS ORDERED: TAMS-3 PO (15:42)
[2017-11-22] MEDS ORDERED: MENT71OI TOP (15:42)
[2017-11-22] MEDS ORDERED: CLOT15CR36 TOP (15:42)
[2017-11-22] MEDS ORDERED: ACID1TAB4 PO (15:42)
[2017-11-22] MEDS ORDERED: ISOS30TA6 PO (15:42)
[2017-11-22] MEDS ORDERED: FOLI0.8T2 PO (15:42)
[2017-11-22] MEDS ORDERED: MUPI22OI2 NS (15:42)
[2017-11-22] MEDS ORDERED: ACET325T53 PO (15:42)
[2017-11-22] MEDS ORDERED: [UNRECOGNIZED DRUG - CODE] IV (15:42)
[2017-11-22] MEDS ORDERED: HYDR25TA86 PO (15:42)
[2017-11-22] MEDS ORDERED: GUAI5SYR PO (15:42)
[2017-11-22 16:07] VITALS: BP 135/66
--- NOTE | 2017-11-22 16:35 | NUR ---
PT D/C WITH ALL BELONGINGS, VALUABLES, EXIT CARE PACKET, IV LINE AND MAGALLON. PT ID REMOVED. PT STABLE TO D/C, CALM, COOPERATIVE FOR D/C. PICTURES TAKEN OF HIS SKIN AND PLACED IN CHART, REPORT GIVEN TO THONG AT [facility]. SHE IS AWARE OF NEXT ANTIBIOTIC DUE AT HIS ARRIVAL.
[2017-11-22 16:47] VITALS: BP 108/60
[2017-11-23 09:07] LABS: CALCITRIOL VIT D,1,25 DIHYDROX 37.9 pg/mL (19.9-79.3)
== END 2017-11-22 16:35 | DRG 682 ==
LOC: ER 17:52 → TELE 22:41 → MED 11-18 23:00
PROVIDERS: ADMIT Nurse Practitioner Acute Care; ATTEND Internal Medicine
DX: N17.0 Acute kidney failure with tubular necrosis (principal); I50.33 Acute on chronic diastolic (congestive) heart failure; E43 Unspecified severe protein-calorie malnutrition; J18.9 Pneumonia, unspecified organism; I13.0 Hypertensive heart and chronic kidney disease with heart failure and stage 1 through stage 4 chronic kidney disease, or unspecified chronic kidney disease; B37.49 Other urogenital candidiasis; Z68.42 Body mass index [BMI] 45.0-49.9, adult; I69.354 Hemiplegia and hemiparesis following cerebral infarction affecting left non-dominant side; D68.59 Other primary thrombophilia; I31.3 Pericardial effusion (noninflammatory); N13.8 Other obstructive and reflux uropathy; E11.22 Type 2 diabetes mellitus with diabetic chronic kidney disease; N18.4 Chronic kidney disease, stage 4 (severe); Z79.4 Long term (current) use of insulin; A49.01 Methicillin susceptible Staphylococcus aureus infection, unspecified site; Z22.322 Carrier or suspected carrier of Methicillin resistant Staphylococcus aureus; E66.01 Morbid (severe) obesity due to excess calories; Z71.3 Dietary counseling and surveillance; N32.81 Overactive bladder; E11.40 Type 2 diabetes mellitus with diabetic neuropathy, unspecified; D50.9 Iron deficiency anemia, unspecified; E78.5 Hyperlipidemia, unspecified; E83.39 Other disorders of phosphorus metabolism; E83.41 Hypermagnesemia; F03.90 Unspecified dementia, unspecified severity, without behavioral disturbance, psychotic disturbance, mood disturbance, and anxiety; I69.391 Dysphagia following cerebral infarction; R13.10 Dysphagia, unspecified; I48.91 Unspecified atrial fibrillation; Z79.02 Long term (current) use of antithrombotics/antiplatelets; Z79.899 Other long term (current) drug therapy; E11.65 Type 2 diabetes mellitus with hyperglycemia; G89.29 Other chronic pain; E11.620 Type 2 diabetes mellitus with diabetic dermatitis; L89.159 Pressure ulcer of sacral region, unspecified stage; K21.9 Gastro-esophageal reflux disease without esophagitis; N28.1 Cyst of kidney, acquired; N40.1 Benign prostatic hyperplasia with lower urinary tract symptoms; Z98.61 Coronary angioplasty status; I25.10 Atherosclerotic heart disease of native coronary artery without angina pectoris; Z96.653 Presence of artificial knee joint, bilateral; I70.0 Atherosclerosis of aorta; I35.0 Nonrheumatic aortic (valve) stenosis; K56.41 Fecal impaction; M19.90 Unspecified osteoarthritis, unspecified site
CPT/HCPCS: 36415; 70030-TC; 71045; 74018; 76770; 82306; 82652; 83550; 83735; 83970; 84100; 84156; 84300; 84443; 85025; 85730; 87070; 87077; 87086; 92523; 93005; 93307; 94640; 94664; 97110; 97112; 97165; 97530; A4663; J0696; J1644; J1815; J2248; J2700; J3490; J7050; J7060